=== PATIENT | female | born 1990 | race Two or more races ===

== ENCOUNTER 2024-08-21 18:58 | Emergency (ER) | payer OTHER ==
[~2024-08-21] VITALS: Ht 165.1 cm; Wt 87.1 kg
[2024-08-21] MEDS ORDERED: METHYLPREDNISOLONE SOD SUCC 125 MG VIAL IV ONE (20:00)
[2024-08-21 20:01] LABS: HEMATOCRIT 36.4 % (36.0-45.00); HEMOGLOBIN 12.5 g/dL (12.0-15.00); MEAN CORPUSCULAR HEMOGLOBIN 28.1 pg (27.00-32.0); MEAN CORPUSCULAR HGB CONC 34.2 g/dl (32.0-36.0); PLATELET COUNT 367 K/uL (150-450); RED BLOOD COUNT 4.44 M/uL (4.00-6.00); RED CELL DISTRIBUTION WIDTH 13.7 % (11.5-14.5)
[2024-08-21] MEDS ORDERED: ANALPRAM HC 2.530 GM RECTAL (20:38)
== END 2024-08-21 21:20 | disposition home or self-care (01) ==
LOC: ER 19:00
PROVIDERS: General Practice
DX: K64.9 Unspecified hemorrhoids (principal)